=== PATIENT | female | born 1990 ===

== ENCOUNTER 2017-10-25 10:11 | Emergency (ER) | payer MEDICAID ==
[2017-10-25 10:19] VITALS: BMI 19.8
[2017-10-25 10:23] VITALS: RESP 18
[2017-10-25] MEDS ORDERED: Lactated Ringer's 1,000 ML IV SCH (11:00)
--- NOTE | 2017-10-25 11:05 | ED PDOC ---
HPI:Nausea, Vomiting, Diarrhea Time Seen by Provider: 10/25/17 10:21 Chief Complaint (Nursing): Chest Pain Chief Complaint (Provider): N/V, chest tightness x 3 days History Per: Patient History/Exam Limitations: no limitations Onset/Duration Of Symptoms: Days Current Symptoms Are (Timing): Still Present Quality Of Discomfort: Other (tightness ) Associated Symptoms: Nausea, Vomiting. denies: Fever, Chills Additional Complaint(s): 27 yo female with no medical problems presents with chest tightness and N/V. Pt states she feels like her heart is beating fast sometimes. PT states she is unable to tolerate PO. Pt states she found out she was a few days ago. States her LMP was beginning of September but does not know exact date. PT (5 medical abortions ). Pt began vitamins. Pt denies abdominal pain or vaginal bleeding. Past Medical History Reviewed: Historical Data, Nursing Documentation, Vital Signs Vital Signs: Last Vital Signs Temp 99.3 F 10/25/17 10:21 Pulse 78 10/25/17 10:21 Resp 18 10/25/17 10:21 BP 118/55 L 10/25/17 10:21 Pulse Ox 98 10/25/17 10:21 - Medical History PMH: No Chronic Diseases Denies: Chronic Kidney Disease - Surgical History Surgical History: No Surg Hx - Family History Family History: States: No Known Family Hx - Living Arrangements Living Arrangements: With Family - Social History Current smoker - smoking cessation education provided: No - Immunization History Hx Tetanus Toxoid Vaccination: No - Home Medications Home Medications: Ambulatory Orders Medication Instructions Recorded Doxylamine/Pyridoxine HCl (B6) 1 each PO QPM #14 tablet. 10/25/17 [Arnaldo San 10-10 mg Tablet] - Allergies Allergies/Adverse Reactions: Allergies Allergy/AdvReac Type Severity Reaction Status Date / Time aloe Allergy RASH Verified 10/04/16 12:19 Review of Systems ROS Statement: Except As Marked, All Systems Reviewed And Found Negative Constitutional: Negative for: Fever, Chills Cardiovascular: Positive for: Palpitations Respiratory: Negative for: Cough, Shortness of Breath, SOB with Exertion Gastrointestinal: Positive for: Nausea, Vomiting. Negative for: Abdominal Pain - Laboratory Results Result Diagrams: 10/25/17 11:17 10/25/17 11:17 - ECG O2 Sat by Pulse Oximetry: 98 Disposition - Clinical Impression Clinical Impression: Nausea/vomiting in - Patient ED Disposition Is Patient to be Admitted: No Counseled Patient/Family Regarding: Diagnosis, Need For Followup, Rx Given - [facility] Connor Kelly DO [Staff Provider] - Disposition: Routine/Home Disposition Time: 13:14 Condition: GOOD Prescriptions: Doxylamine/Pyridoxine HCl (B6) [Arnaldo San 10-10 mg Tablet] 1 each PO QPM #14 tablet. Instructions: Acute Nausea and Vomiting (ED) Forms: [employer] (Vietnamese)
[2017-10-25 11:34] LABS: BASO % 0.7 % (0.0-2.0); EOS # 0.1 K/uL (0.0-0.7); EOS % 1.6 % (0.0-4.0); LYMPH # 1.5 K/uL (1.0-4.3); LYMPH % 27.3 % (20.0-40.0); MEAN CORPUSCULAR HEMOGLOBIN 30.1 pg (27.0-31.0); MEAN CORPUSCULAR HGB CONC 34.6 g/dL (33.0-37.0); MONO # 0.5 K/uL (0.0-0.8); MONO % 8.5 % (0.0-10.0); NEUT # 3.4 K/uL (1.8-7.0); NEUT % 61.9 % (50.0-75.0); NRBC % 0.1 % (0.0-0.0); RBC 4.33 Mil/uL (3.80-5.20); RED CELL DISTRIBUTION WIDTH 14.1 % (11.5-14.5); WHITE BLOOD COUNT 5.4 K/uL (4.8-10.8)
[2017-10-25 11:46] LABS: ALB/GLOB RATIO 1.4 (1.0-2.1); ALBUMIN 4.3 g/dL (3.5-5.0); ALT/SGPT 26 U/L (9-52); AST/SGOT 23 U/L (14-36); BLOOD UREA NITROGEN 11 mg/dl (7-17); CALCIUM 9.2 mg/dL (8.4-10.2); GFR AFRICAN-AMERICAN > 60; GFR NON-AFRICAN AMERICAN > 60
[2017-10-25 14:30] VITALS: BP 113/65; PULSE 68; TEMP 98.6; O2SAT 99
--- NOTE | 2017-10-26 08:55 | CARD ---
APPROVED REPORT EKG Measurement Heart [id number] <Conclusion> Normal sinus rhythm Normal ECG
== END 2017-10-25 13:54 | disposition home or self-care (01) ==
LOC: H.ER 10:11
DX: O21.9 Vomiting of pregnancy, unspecified (principal); R07.89 Other chest pain
CPT/HCPCS: 80053; 81025; 84443; 84702; 85025; 85378; 93005; 96360; 99284; J2405; J7120

== ENCOUNTER 2017-12-21 13:14 | Emergency (ER) | payer MEDICAID ==
[2017-12-21 13:15] VITALS: BMI 19.8
[2017-12-21 13:23] VITALS: RESP 18
[2017-12-21] MEDS ORDERED: Sodium Chloride 0.9% 1,000 ML IV STA (13:51)
--- NOTE | 2017-12-21 14:14 | ED PDOC ---
Syncope/Near Syncope/Dizziness Additional Complaint(s): 27 YO female who claims to be 13-14 weeks presents to the clinic today for multiple near syncope episodes. Her most recent episodes were yesterday, she had two episodes of where she was standing and she suddenly felt light headed and had to grab on to something and sit down. Denies any palpitations, sweating at that time, she claims her vision went black but did not loose consciousness. Episode of near syncope was witnessed by her father. Denies any shaking of upper and lower extremities. - She has been having vomiting more then 5 times a day, she was advised to take Unisom for the vomiting however was not compliant with the regimen. She had 4 episodes of non bloody non bilious vomiting. Most recent episode was today while instructional writer was talking to the patient. - Patient was recently admitted in [place] a week ago, for hypokalemia, dehydration and food poisoning, after returning from [place]. - Patient has not had any care at this point. She had an appointment with the clinic to go today, but couldn't go because she ended up here. Patient has not had an ultrasound for the baby yet, she was given a script to go , but didnt get time to go yet. Denies any movement, vaginal bleeding, or spotting. She has not been taking her PNV because she feels nauseous and vomits. Has ordered gummy vitamins which she will take once they arrive. <Trinidad Vyas - Last Filed: 12/21/17 18:27> <Kennedy Taylor III - Last Filed: 12/22/17 16:20> Time Seen by Provider: 12/21/17 13:29 Chief Complaint (Nursing): Syncope Supervising Attending Note - Attestation: I have personally seen and examined this patient.: Yes I have fully participated in the care of the patient.: Yes I have reviewed all pertinent clinical information: Yes - Notes: Notes:: Dr Vazquez took part in care, endorsed to myself, was tolerating PO on discharge , arrangements made for rapid clinic followup. <Kennedy Taylor III - Last Filed: 12/22/17 16:20> Past Medical History Vital Signs: Last Vital Signs Temp 98 F 12/21/17 13:19 Pulse 91 H 12/21/17 13:19 Resp 18 12/21/17 13:19 BP 109/73 12/21/17 13:19 Pulse Ox 100 12/21/17 13:19 - Medical History PMH: No Chronic Diseases Denies: Chronic Kidney Disease - Surgical History Surgical History: No Surg Hx - Family History Family History: States: No Known Family Hx - Social History Current smoker - smoking cessation education provided: No Alcohol: None Drugs: Denies - Immunization History Hx Tetanus Toxoid Vaccination: No <Trinidad Vyas - Last Filed: 12/21/17 18:27> Vital Signs: Last Vital Signs Temp 98.2 F 12/21/17 18:34 Pulse 70 12/21/17 18:34 Resp 18 12/21/17 18:34 BP 122/70 12/21/17 18:34 Pulse Ox 99 12/21/17 18:34 <Kennedy Taylor III - Last Filed: 12/22/17 16:20> - Home Medications Home Medications: Ambulatory Orders Medication Instructions Recorded Doxylamine/Pyridoxine HCl (B6) 1 each PO QPM #14 tablet. 10/25/17 [Arnaldo San 10-10 mg Tablet] Doxylamine/Pyridoxine HCl (B6) 1 each PO HS PRN #10 tablet. 12/21/17 [Arnaldo San 10-10 mg Tablet] Ondansetron [Zofran] 4 mg PO Q6H PRN #10 tab 12/21/17 - Allergies Allergies/Adverse Reactions: Allergies Allergy/AdvReac Type Severity Reaction Status Date / Time aloe Allergy RASH Verified 10/04/16 12:19 latex Allergy RASH Verified 12/21/17 13:22 Physical Exam - Physical Exam Appears: Positive for: No Acute Distress Head Exam: Positive for: ATRAUMATIC, NORMAL INSPECTION, NORMOCEPHALIC Cardiovascular/Chest: Positive for: Regular Rate, Rhythm Respiratory: Positive for: Normal Breath Sounds. Negative for: Rales, Rhonchi, Wheezing, Respiratory Distress Back: Negative for: L CVA Tenderness, R CVA Tenderness Neurologic/Psych: Positive for: Alert, director of medical services II-XII, Oriented, Other (Motor and sensory intact. DTR 2+ b/l. Cerbellar test : WNL). Negative for: Motor/Sensory Deficits <Trinidad Vyas - Last Filed: 12/21/17 18:27> - Laboratory Results Result Diagrams: 12/21/17 14:00 12/21/17 14:00 - ECG O2 Sat by Pulse Oximetry: 100 <Trinidad Vyas - Last Filed: 12/21/17 18:27> - Laboratory Results Result Diagrams: 12/21/17 14:00 12/21/17 14:00 <Kennedy Taylor III - Last Filed: 12/22/17 16:20> Medical Decision Making Medical Decision Making: CBC: WNL CMP: Showed K+ of 3.3 IVF: D5W w/ KCL 20 given bolus Patient given Zofran and Regalan Tolerated PO intake. Patient feels well. [facility]. - U/S showed fetus is 12W and 4 days, cervix is closed, heart rate is present <Trinidad Vyas - Last Filed: 12/21/17 18:27> Disposition - Disposition Disposition Time: 18:20 <Trinidad Vyas - Last Filed: 12/21/17 18:27> <Kennedy Taylor III - Last Filed: 12/22/17 16:20> - Clinical Impression Clinical Impression: Nausea/vomiting in - Disposition Condition: IMPROVED Additional Instructions: FOLLOW UP WITH [facility] on Thursday at 3:00 pm RETURN TO ED WITH ANY WORSENING OR CONCERNING SYMPTOMS Prescriptions: Doxylamine/Pyridoxine HCl (B6) [Arnaldo San 10-10 mg Tablet] 1 each PO HS PRN # 10 tablet. PRN Reason: Nausea/Vomiting Ondansetron [Zofran] 4 mg PO Q6H PRN #10 tab PRN Reason: Nausea/Vomiting Instructions: Hyperemesis Gravidarum, Morning Sickness (DC) Forms: [employer] (South Sudanese)
[2017-12-21 14:22] LABS: BASO % 0.3 % (0.0-2.0); EOS # 0.1 K/uL (0.0-0.7); EOS % 1.3 % (0.0-4.0); HEMOGLOBIN 13.1 g/dL (12.0-16.0); LYMPH # 1.4 K/uL (1.0-4.3); MEAN CELL VOLUME 87.2 fl (81.0-99.0); MEAN CORPUSCULAR HEMOGLOBIN 30.1 pg (27.0-31.0); MEAN CORPUSCULAR HGB CONC 34.5 g/dL (33.0-37.0); MEAN PLATELET VOLUME 6.6 fl (7.2-11.7); MONO # 0.6 K/uL (0.0-0.8); MONO % 5.9 % (0.0-10.0); NEUT # 7.2 K/uL (1.8-7.0); NEUT % 77.5 % (50.0-75.0); NRBC % 0.3 % (0.0-0.0); RBC 4.34 Mil/uL (3.80-5.20); RED CELL DISTRIBUTION WIDTH 14.3 % (11.5-14.5); WHITE BLOOD COUNT 9.3 K/uL (4.8-10.8)
[2017-12-21 14:27] LABS: SQUAMOUS EPITHIAL 5 /hpf (0-5); URINE AMORPHOUS SEDIMENT RARE /ul (<OCC); URINE BILIRUBIN NEGATIVE (NEGATIVE); URINE BLOOD NEGATIVE (NEGATIVE); URINE CLARITY SLIGHTY-CLOUDY (Clear); URINE COLOR YELLOW (YELLOW); URINE GLUCOSE (UA) NEG (Normal); URINE LEUKOCYTE ESTERASE TRACE Leu/uL (Negative); URINE PROTEIN NEGATIVE (NEGATIVE); URINE UROBILINOGEN 0.2-1.0 mg/dL (0.2-1.0)
[2017-12-21 14:34] LABS: ALB/GLOB RATIO 1.2 (1.0-2.1); ALBUMIN 4.2 g/dL (3.5-5.0); ALT/SGPT 24 U/L (9-52); AST/SGOT 21 U/L (14-36); BLOOD UREA NITROGEN 7 mg/dl (7-17); CALCIUM 9.4 mg/dL (8.4-10.2); GFR AFRICAN-AMERICAN > 60; GFR NON-AFRICAN AMERICAN > 60
[2017-12-21] MEDS ORDERED: Potassium Chl 20mEq & D5W 1,000 ML IV ONE (15:15)
--- NOTE | 2017-12-21 17:01 | US ---
PROCEDURE: First trimester ultrasound HISTORY: MORNING SICKNESS COMPARISON: None available. TECHNIQUE: Standard protocol for this study/examination. FINDINGS: LMP: Unknown Prior examinations from the current : None TECHNIQUE: Real-time 2D imaging, duplex and color Doppler. FINDINGS: Cardiac activity: Present Rate: 157 BPM Measurements: Hana rump length: 6.50 cm Gestational age based on CRL 12 weeks 6 days Gestational age 12 weeks 1 day based on gestational sac measurement 5.99 cm Gestational age derived from LMP: Cannot be ascertained based in the absence of a reliable/ known LMP JAILYN based on LMP: Cannot be ascertained based in the absence of a reliable/ known LMP JAILYN based on biometry: 07/01/2018 Gestational concordance documented Yolk sac not identified Uterus: Unremarkable. No Cervical abnormalities: Negative examination for cervical dilatation or effacement. Closed cervix measuring 4.2 cm Subchorionic hemorrhage: None ADNEXA: Right: Not visualized Left: Not visualized Fluid in the cul-de-sac: None IMPRESSION: 12 weeks 4 days live intrauterine gestation.
[2017-12-21 18:34] VITALS: BP 122/70; PULSE 70; TEMP 98.2; O2SAT 99
--- NOTE | 2017-12-22 08:29 | CARD ---
APPROVED REPORT EKG Measurement Heart [id number] <Conclusion> Normal sinus rhythm Normal ECG
== END 2017-12-21 19:12 | disposition home or self-care (01) ==
LOC: H.ER 13:14
DX: O21.9 Vomiting of pregnancy, unspecified (principal); Z3A.12 12 weeks gestation of pregnancy
CPT/HCPCS: 76815; 80053; 81003; 81025; 84702; 85025; 87086; 93005; 96374; 99283; J2405; J2765; J7040

== ENCOUNTER 2018-01-04 14:20 | Emergency (ER) | payer MEDICAID ==
[2018-01-04 14:21] VITALS: BMI 19.8
[2018-01-04 14:43] VITALS: BP 112/75; PULSE 96; RESP 18; TEMP 98; O2SAT 99
--- NOTE | 2018-01-04 15:11 | ED PDOC ---
HPI: Female Pain Time Seen by Provider: 01/04/18 15:00 Chief Complaint (Nursing): Female Genitourinary Chief Complaint (Provider): Female Genitourinary History Per: Patient History/Exam Limitations: no limitations Onset/Duration Of Symptoms: Persistent (x2 weeks) Current Symptoms Are (Timing): Still Present Additional Complaint(s): 27 year old female, currently 14 weeks , presents to the emergency department with a complaint of painful urination associated with lower abdominal pain ongoing for 2 weeks. Patient was prescribed Macrobid from ED following a urine culture to treat UTI but did not complete course. An IUP ultrasound was performed on 12/21/17 to verify length of and patient has a pending [facility] visit with Dr. Mehrdad mishra. She denied any vaginal discharge or bleeding. A5 PMD: none provided Past Medical History Reviewed: Historical Data, Nursing Documentation, Vital Signs Vital Signs: Last Vital Signs Temp 98 F 01/04/18 14:37 Pulse 96 H 01/04/18 14:37 Resp 18 01/04/18 14:37 BP 112/75 01/04/18 14:37 Pulse Ox 99 01/04/18 14:37 - Medical History PMH: Denies: Chronic Kidney Disease Other PMH: chronic vaginitis - Surgical History Surgical History: Denies: No Surg Hx - Family History Family History: States: Unknown Family Hx - Social History Current smoker - smoking cessation education provided: No Alcohol: Occasional Drugs: Cannabis - Immunization History Hx Tetanus Toxoid Vaccination: No - Home Medications Home Medications: Ambulatory Orders Medication Instructions Recorded Doxylamine/Pyridoxine HCl (B6) 1 each PO QPM #14 tablet. 10/25/17 [Arnaldo San 10-10 mg Tablet] Doxylamine/Pyridoxine HCl (B6) 1 each PO HS PRN #10 tablet. 12/21/17 [Arnaldo San 10-10 mg Tablet] Ondansetron [Zofran] 4 mg PO Q6H PRN #10 tab 12/21/17 - Allergies Allergies/Adverse Reactions: Allergies Allergy/AdvReac Type Severity Reaction Status Date / Time aloe Allergy RASH Verified 01/04/18 14:37 latex Allergy RASH Verified 12/21/17 13:22 Review of Systems ROS Statement: Except As Marked, All Systems Reviewed And Found Negative Gastrointestinal: Positive for: Abdominal Pain (suprapubic) Genitourinary Female: Positive for: Dysuria. Negative for: Vaginal Discharge, Vaginal Bleeding Physical Exam - Reviewed Nursing Documentation Reviewed: Yes Vital Signs Reviewed: Yes - Physical Exam Appears: Positive for: Non-toxic, No Acute Distress Cardiovascular/Chest: Positive for: Regular Rate, Rhythm, Chest Non Tender Respiratory: Positive for: Normal Breath Sounds. Negative for: Decreased Breath Sounds, Wheezing, Respiratory Distress Gastrointestinal/Abdominal: Positive for: Normal Exam, Soft. Negative for: Tenderness Pelvic Exam: Positive for: Discharge (moderate white vaginal discharge, non odorous). Negative for: No Cerv. Motion Tender, Tender W/Cervical Motion Back: Positive for: Normal Inspection. Negative for: L CVA Tenderness, R CVA Tenderness Extremity: Positive for: Normal ROM (upper/lower). Negative for: Pedal Edema ( bilateral) Neurologic/Psych: Positive for: Alert (x3), Oriented - Progress ED Course And Treament: Urine dip neg for nitrate; blood; leuk Previous urine cx 12/21 demonstrated lactobacillus. Will repeat urine cx today. G/c and genital cx sent. Patient advised to f/u with campaign coordinator as planned for results. Medical Decision Making Medical Decision Making: Initial Impression: Dysuria; Initial Plan: * Urine dipstick * Chlamydia/GC RNA,TMA * Genital culture * Urine culture * UA Time: 1515 --Urine: negative for significant abnormalities Scribe Attestation: Documented by Vania Holden, acting as a scribe for Lorie Cronin PA-C. Provider Scribe Attestation: All medical record entries made by the Scribe were at my direction and personally dictated by me. I have reviewed the chart and agree that the record accurately reflects my personal performance of the history, physical exam, medical decision making, and the department course for this patient. I have also personally directed, reviewed, and agree with the discharge instructions and disposition. Disposition - Clinical Impression Clinical Impression: Vaginitis - Patient ED Disposition Is Patient to be Admitted: No - Disposition [facility]] Disposition: Routine/Home Disposition Time: 16:19 Condition: FAIR Additional Instructions: [facility]U [facility] FOR FURTHER EVALUATION IN 3 DAYS. Instructions: Vaginitis Forms: [employer] ([place])
[2018-01-04 15:16] LABS: SQUAMOUS EPITHIAL 1 /hpf (0-5); URINE BACTERIA RARE (<OCC); URINE BILIRUBIN NEGATIVE (NEGATIVE); URINE BLOOD NEGATIVE (NEGATIVE); URINE CLARITY CLEAR (Clear); URINE COLOR COLORLESS (YELLOW); URINE GLUCOSE (UA) NEG (Normal); URINE LEUKOCYTE ESTERASE NEG Leu/uL (Negative); URINE PROTEIN NEGATIVE (NEGATIVE); URINE UROBILINOGEN 0.2-1.0 mg/dL (0.2-1.0)
== END 2018-01-04 16:29 | disposition home or self-care (01) ==
LOC: H.ER 14:20
DX: O23.42 Unspecified infection of urinary tract in pregnancy, second trimester (principal); Z3A.14 14 weeks gestation of pregnancy